=== PATIENT | male | born 1945 | race Caucasian/White ===

== ENCOUNTER 2018-06-20 10:00 | Outpatient (RCR) | payer MEDICARE | END 2018-06-20 10:30 | disposition still patient (30) | LOC: SPEECH 10:00 | DX: R41.89 Other symptoms and signs involving cognitive functions and awareness (principal) ==

== ENCOUNTER 2021-07-14 20:05 | Emergency (ER) | payer MEDICARE ==
[~2021-07-14] VITALS: Ht 188 cm; Wt 88.2 kg
[2021-07-14 21:31] LABS: HEMATOCRIT 38.8 % (42.0-52.0); HEMOGLOBIN 12.6 g/dL (13.5-18.0); MEAN CELL VOLUME 99 fl (78-100); MEAN CORPUSCULAR HEMOGLOBIN 32 pg (27-31); MEAN CORPUSCULAR HGB CONC 33 g/dL (33-37); MEAN PLATELET VOLUME 10.4 fl (7.4-10.4); PLATELET COUNT 77 K/mm3 (130-400); RED BLOOD COUNT 3.92 M/mm3 (4.20-5.60); RED CELL DISTRIBUTION WIDTH 12.4 % (11.5-14.5); WHITE BLOOD COUNT 4.5 K/mm3 (4.8-10.8)
[2021-07-14 21:34] LABS: POTASSIUM 4.4 mmol/L (3.5-5.1)
[2021-07-14 21:36] LABS: CALCIUM 9.2 mg/dL (8.3-10.5)
[2021-07-14 21:37] LABS: TOTAL PROTEIN 6.2 g/dL (6.2-8.1)
[2021-07-14 21:39] LABS: TOTAL BILIRUBIN 1.6 mg/dL (0.2-1.2)
[2021-07-14 21:59] LABS: PH-URINE 5.5 (5.0 - 8.0); URINE APPEARANCE HAZY; URINE BILIRUBIN NEGATIVE (NEGATIVE); URINE BLOOD 250 ery/uL (NEGATIVE); URINE COLOR YELLOW; URINE GLUCOSE NEGATIVE (NEGATIVE); URINE KETONE NEGATIVE (NEGATIVE); URINE LEUKOCYTE ESTERASE TRACE (NEGATIVE); URINE MUCUS PRESENT (NOT PRESENT); URINE NITRATE NEGATIVE (NEGATIVE); URINE PROTEIN(semi-quant) TRACE (NEGATIVE); URINE UROBILINOGEN NORMAL (NORMAL)
[2021-07-14 22:00] LABS: LYMPHOCYTE 8 % (20-51); MONOCYTE 10 % (3-10); NEUTROPHILS 82 % (42-75)
[2021-07-14 22:20] VITALS: BP 149/85
[2021-07-14] MEDS ORDERED: VITAMIN B122500 MC2 PO (22:44)
[2021-07-14] MEDS ORDERED: ARICEPT10 M1 PO (22:45)
[2021-07-14] MEDS ORDERED: NORVASC 10MG10 MG PO (22:45)
[2021-07-14] MEDS ORDERED: CURCUMIN95% PO (22:45)
[2021-07-14] MEDS ORDERED: TOPROL XL 25MG25 MG PO (22:46)
[2021-07-14] MEDS ORDERED: NAMENDA10 MG PO (22:46)
== END 2021-07-14 22:20 | disposition other institution (70) ==
LOC: ED 20:05
PROVIDERS: Family Medicine
DX: N39.0 Urinary tract infection, site not specified (principal); F03.90 Unspecified dementia, unspecified severity, without behavioral disturbance, psychotic disturbance, mood disturbance, and anxiety; N17.9 Acute kidney failure, unspecified; D75.89 Other specified diseases of blood and blood-forming organs; Z90.49 Acquired absence of other specified parts of digestive tract

== ENCOUNTER 2021-07-14 22:20 | Inpatient (IN) | payer MEDICARE ==
[~2021-07-14] VITALS: Ht 188 cm; Wt 89.0 kg
[2021-07-14 22:30] VITALS: BP 149/85
[2021-07-14] MEDS ORDERED: VITAMIN B122500 MC2 PO (22:44)
[2021-07-14] MEDS ORDERED: ARICEPT10 M1 PO (22:45)
[2021-07-14] MEDS ORDERED: NORVASC 10MG10 MG PO (22:45)
[2021-07-14] MEDS ORDERED: CURCUMIN95% PO (22:45)
[2021-07-14] MEDS ORDERED: NAMENDA10 MG PO (22:46)
[2021-07-14] MEDS ORDERED: TOPROL XL 25MG25 MG PO (22:46)
[2021-07-15 05:57] VITALS: BP 151/59
[2021-07-15 07:33] LABS: HEMATOCRIT 34.9 % (42.0-52.0); HEMOGLOBIN 11.7 g/dL (13.5-18.0); MEAN CELL VOLUME 96 fl (78-100); MEAN CORPUSCULAR HEMOGLOBIN 32 pg (27-31); MEAN CORPUSCULAR HGB CONC 34 g/dL (33-37); MEAN PLATELET VOLUME 10.7 fl (7.4-10.4); PLATELET COUNT 58 K/mm3 (130-400); RED BLOOD COUNT 3.62 M/mm3 (4.20-5.60); RED CELL DISTRIBUTION WIDTH 12.4 % (11.5-14.5); WHITE BLOOD COUNT 3.8 K/mm3 (4.8-10.8)
[2021-07-15 07:52] LABS: ALBUMIN 3.4 g/dL (3.4-4.8); POTASSIUM 3.7 mmol/L (3.5-5.1)
[2021-07-15 07:53] LABS: CALCIUM 8.3 mg/dL (8.3-10.5)
[2021-07-15 07:55] LABS: TOTAL PROTEIN 5.6 g/dL (6.2-8.1)
[2021-07-15 07:56] LABS: TOTAL BILIRUBIN 1.2 mg/dL (0.2-1.2)
[2021-07-15 08:09] LABS: BAND 58 % (0-10); LYMPHOCYTE 8 % (20-51); MONOCYTE 4 % (3-10); NEUTROPHILS 30 % (42-75)
[2021-07-15 10:20] VITALS: BP 106/60
[2021-07-15 14:04] VITALS: BP 98/60
[2021-07-15 16:58] VITALS: BP 101/62
[2021-07-16 05:56] VITALS: BP 101/63
[2021-07-16 14:05] VITALS: BP 96/63
[2021-07-17 06:10] VITALS: BP 122/66
[2021-07-17 17:22] VITALS: BP 137/70
[2021-07-18 05:01] VITALS: BP 108/68
[2021-07-18 15:52] VITALS: BP 123/74
[2021-07-19 05:55] VITALS: BP 127/75
[2021-07-19] MEDS ORDERED: ATIVAN0.5 MG PO (08:39)
== END 2021-07-19 12:56 | DRG 690 ==
LOC: MED/SURG 22:20
PROVIDERS: ADMIT Family Medicine
DX: N39.0 Urinary tract infection, site not specified (principal); N17.9 Acute kidney failure, unspecified; D61.818 Other pancytopenia; G30.9 Alzheimer's disease, unspecified; I11.0 Hypertensive heart disease with heart failure; I50.9 Heart failure, unspecified; F02.80 Dementia in other diseases classified elsewhere, unspecified severity, without behavioral disturbance, psychotic disturbance, mood disturbance, and anxiety; D75.89 Other specified diseases of blood and blood-forming organs; Z66 Do not resuscitate; R53.81 Other malaise; R32 Unspecified urinary incontinence; Z90.49 Acquired absence of other specified parts of digestive tract; W18.30XA Fall on same level, unspecified, initial encounter; Y92.009 Unspecified place in unspecified non-institutional (private) residence as the place of occurrence of the external cause; Z85.46 Personal history of malignant neoplasm of prostate
CPT/HCPCS: J0696; J1940; J7030

== ENCOUNTER 2021-07-26 11:29 | Emergency (ER) | payer MEDICARE ==
[~2021-07-26] VITALS: Ht 188 cm; Wt 81.7 kg
[2021-07-26 12:08] LABS: BASO # 0.03 K/mm3 (0.02-0.10); EOS # 0.08 K/mm3 (0.04-0.40); EOS % 0.8 % (0.0-4.0); HEMATOCRIT 38.8 % (42.0-52.0); HEMOGLOBIN 13.2 g/dL (13.5-18.0); LYMPH# 0.67 K/mm3 (1.50-4.00); MEAN CELL VOLUME 94 fl (78-100); MEAN CORPUSCULAR HEMOGLOBIN 32 pg (27-31); MEAN CORPUSCULAR HGB CONC 34 g/dL (33-37); MEAN PLATELET VOLUME 10.3 fl (7.4-10.4); MONO # 0.71 K/mm3 (0.20-0.80); NEU # 8.03 K/mm3 (1.40-6.50); PLATELET COUNT 172 K/mm3 (130-400); RED BLOOD COUNT 4.11 M/mm3 (4.20-5.60); RED CELL DISTRIBUTION WIDTH 12.5 % (11.5-14.5); WHITE BLOOD COUNT 9.6 K/mm3 (4.8-10.8)
[2021-07-26 12:12] LABS: ALBUMIN 3.7 g/dL (3.4-4.8); POTASSIUM 4.3 mmol/L (3.5-5.1)
[2021-07-26 12:15] LABS: TOTAL PROTEIN 6.6 g/dL (6.2-8.1)
[2021-07-26 12:36] LABS: TOTAL BILIRUBIN 1.4 mg/dL (0.2-1.2)
[2021-07-26 15:01] LABS: URINE APPEARANCE CLEAR; URINE COLOR YELLOW
[2021-07-26 15:02] LABS: URINE BILIRUBIN NEGATIVE (NEGATIVE); URINE BLOOD 250 ery/uL (NEGATIVE); URINE GLUCOSE NEGATIVE (NEGATIVE); URINE KETONE NEGATIVE (NEGATIVE); URINE LEUKOCYTE ESTERASE NEGATIVE (NEGATIVE); URINE MUCUS PRESENT (NOT PRESENT); URINE NITRATE NEGATIVE (NEGATIVE); URINE PROTEIN(semi-quant) 1+ (NEGATIVE); URINE UROBILINOGEN NORMAL (NORMAL); URINE WBC 0-1 /hpf (0-3)
[2021-07-26 16:42] VITALS: BP 118/68
== END 2021-07-26 16:46 | disposition short-term general hospital (02) ==
LOC: ED 11:29
PROVIDERS: Nurse Practitioner Family
DX: S72.001A Fracture of unspecified part of neck of right femur, initial encounter for closed fracture (principal); W19.XXXA Unspecified fall, initial encounter
CPT/HCPCS: J7030

== ENCOUNTER → 2021-07-26 | Outpatient (CLI) | payer MEDICARE ==
[~2021-07-26] MED LIST: ARICEPT10 M1 PO; ATIVAN0.5 MG PO; CURCUMIN95% PO; NAMENDA10 MG PO; NORVASC 10MG10 MG PO; TOPROL XL 25MG25 MG PO; VITAMIN B122500 MC2 PO
== END ==
LOC: RAD 10:56
DX: S72.091A Other fracture of head and neck of right femur, initial encounter for closed fracture (principal); M16.0 Bilateral primary osteoarthritis of hip; X58.XXXA Exposure to other specified factors, initial encounter

== ENCOUNTER → 2021-08-05 | Outpatient (CLI) | payer MEDICARE | LOC: RAD 16:21 | DX: M25.551 Pain in right hip (principal); Z96.641 Presence of right artificial hip joint ==

== ENCOUNTER → 2023-02-02 | Outpatient (CLI) | payer MEDICARE ==
[2023-02-02 08:15] LABS: HEMATOCRIT 48.8 % (42.0-52.0); HEMOGLOBIN 15.9 g/dL (13.5-18.0); MEAN PLATELET VOLUME 10.8 fl (7.4-10.4); RED BLOOD COUNT 5.06 M/mm3 (4.20-5.60); RED CELL DISTRIBUTION WIDTH 12.7 % (11.5-14.5); WHITE BLOOD COUNT 5.6 K/mm3 (4.8-10.8)
[2023-02-02 08:22] LABS: ALBUMIN 3.9 g/dL (3.4-4.8)
[2023-02-02 08:23] LABS: CALCIUM 9.2 mg/dL (8.3-10.5)
[2023-02-02 08:24] LABS: TOTAL PROTEIN 6.7 g/dL (6.2-8.1)
[2023-02-02 09:08] LABS: TOTAL BILIRUBIN 0.7 mg/dL (0.2-1.2)
== END ==
LOC: LAB 06:40
PROVIDERS: Family Medicine
DX: I10 Essential (primary) hypertension (principal); E78.5 Hyperlipidemia, unspecified

== ENCOUNTER → 2023-05-05 | Outpatient (CLI) | payer MEDICARE ==
[2023-05-05 08:12] LABS: HEMATOCRIT 47.6 % (42.0-52.0); HEMOGLOBIN 15.6 g/dL (13.5-18.0); MEAN PLATELET VOLUME 10.8 fl (7.4-10.4); RED BLOOD COUNT 4.92 M/mm3 (4.20-5.60); RED CELL DISTRIBUTION WIDTH 12.5 % (11.5-14.5); WHITE BLOOD COUNT 4.5 K/mm3 (4.8-10.8)
[2023-05-05 08:17] LABS: ALBUMIN 3.7 g/dL (3.4-4.8)
[2023-05-05 08:18] LABS: CALCIUM 9.1 mg/dL (8.3-10.5)
[2023-05-05 08:19] LABS: TOTAL PROTEIN 6.2 g/dL (6.2-8.1)
[2023-05-05 08:21] LABS: TOTAL BILIRUBIN 0.88 mg/dL (0.2-1.2)
== END ==
LOC: LAB 06:35
PROVIDERS: Nurse Practitioner
DX: I12.9 Hypertensive chronic kidney disease with stage 1 through stage 4 chronic kidney disease, or unspecified chronic kidney disease (principal); N18.30 Chronic kidney disease, stage 3 unspecified; D61.818 Other pancytopenia; D63.1 Anemia in chronic kidney disease; C61 Malignant neoplasm of prostate; Z74.09 Other reduced mobility

== ENCOUNTER → 2023-05-09 | Outpatient (CLI) | payer MEDICARE | LOC: LAB 16:24 | DX: J10.1 Influenza due to other identified influenza virus with other respiratory manifestations (principal) ==

== ENCOUNTER → 2023-09-09 | Outpatient (REF) | payer MEDICARE ==
[2023-11-08 14:42] LABS: URINE APPEARANCE TURBID (CLEAR); URINE COLOR YELLOW (YELLOW); URINE PROTEIN(semi-quant) 1+ (NEGATIVE)
[2023-11-08 14:43] LABS: URINE BILIRUBIN NEGATIVE (NEGATIVE); URINE BLOOD 2+ (NEGATIVE); URINE GLUCOSE NEGATIVE (NEGATIVE); URINE KETONE NEGATIVE (NEGATIVE); URINE LEUKOCYTE ESTERASE 3+ (NEGATIVE); URINE NITRATE NEGATIVE (NEGATIVE); URINE WBC >50 /hpf (0-3)
== END ==
LOC: LAB 09:40
PROVIDERS: Family Medicine
DX: N39.0 Urinary tract infection, site not specified (principal)